=== PATIENT | female | born 1980 | race Caucasian/White ===

== ENCOUNTER 2017-01-17 01:49 | Inpatient (IN) ==
[2017-01-17 02:19] LABS: MANUAL DIFF NEEDED? NO
[2017-01-17 02:25] LABS: BASO% 0.2 % (0.0-0.8); EOS# 0.04 X1000 (0.0-0.7); EOS% 0.3 % (0.0-10.0); HEMATOCRIT 47.5 % (37.0-47.0); HEMOGLOBIN 16.5 g/dL (12.0-16.0); IMM GRAN# 0.02 X1000 (0.0-0.04); IMM GRAN% 0.2 % (0.0-0.5); LYMPH# 1.53 X1000 (1.2-3.4); LYMPH% 11.7 % (20.5-51.1); MCH 28.9 PG (27-31); MCHC 34.7 g/dL (33-37); MCV 83.2 FL (81-99); MONO# 0.47 X1000 (0.11-0.59); MONO% 3.6 % (1.7-9.3); MPV 11.1 FL (7.4-10.4); PLT 290 X1000 (130-400); RBC 5.71 XMIL (4.2-5.4)
[2017-01-17 02:46] LABS: AGAP 17; ALKALINE PHOSPHATASE 67 U/L (32-104); AMYLASE 64 U/L (20-200); BUN 11 mg/dL (8-22); CALCIUM 10.6 mg/dL (8.8-10.2); CHLORIDE 98 mmol/L (98-107); COSMO 274; GOT 20 U/L (10-30); GPT 20 U/L (10-36); LIPASE 52 U/L (13-60); POTASSIUM 4.6 mmol/L (3.5-5.1); SODIUM 135 mmol/L (136-145); TCO2 20 mmol/L (25-35); TOTAL BILIRUBIN 0.43 mg/dL (0.20-1.00); TOTAL PROTEIN 8.8 g/dL (6.3-8.3)
[2017-01-17] MEDS ORDERED: MORPHINE IV ONE ×2 (03:42→05:52)
[2017-01-17] MEDS ORDERED: NS 1,000 ML IV ONE ×2 (03:42→09:24)
[2017-01-17] MEDS ORDERED: ZOFRAN IV ONE (03:44)
--- NOTE | 2017-01-17 03:53 | PROVIDER DOCUMENTATION ---
HPI-Abdominal Pain/GI Problem - General Chief Complaint: N/V/D Stated Complaint: abd pain/vomiting Time Seen by Provider: 01/17/17 01:50 Source: patient Allergies/Adverse Reactions: Patient Allergies Allergy/AdvReac Type Severity Reaction Status Date / Time sulfamethoxazole Allergy HIVES Verified 01/17/17 02:16 [From Bactrim] trimethoprim [From Bactrim] Allergy HIVES Verified 01/17/17 02:16 Home Medications: Home Medication List Medication Instructions Recorded Confirmed Last Taken Type Hydrocodone/Acetaminophen [[place] 10 mg PO 4XDAY 09/20/14 01/17/17 01/16/17 History 10-325 Tablet] Metoprolol [Lopressor] 25 mg PO DAILY #30 tablet 05/21/15 01/17/17 01/08/17 Rx Buprenorphine HCl/Naloxone HCl 1 each SL BID 01/17/17 01/17/17 01/16/17 History [Suboxone 8 mg/2 mg Sl Film] - History of Present Illness-ABD Nature of Presenting Problems: 36 yo WF with 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 Tonight she took a suboxone strip which was purchased on the street, apparently precipitating severe withdrawal symptoms. Abdominal Pain Onset Location: reports: generalized abdomen Pain Radiation: reports: no radiation Quality of Pain: reports: cramping Severity in ED: reports: severe Onset/Duration: reports: 4-6 hours ago Activities at Onset: reports: none Exposure to sick contacts?: No Review of Systems - Adult - REVIEW OF SYSTEMS - ADULT Constitutional: reports: see HPI, chills Past History - Adult - PAST MEDICAL HISTORY-ADULT Review of Records: reports: Old Records Reviewed, Nursing Assessment Review, Medications Reviewed, Social history reviewed & non-contributory. Major Childhood Illnesses: reports: denies history Cardiovascular: reports: denies history Respiratory: reports: denies history Gastrointestinal: reports: denies history Obstetrical/Gynecological: reports: denies history Genitourinary: reports: denies history Musculoskeletal: reports: denies history Neurological: reports: denies history Endocrine/Immune: reports: denies history Other Conditions: reports: denies history - FAMILY HISTORY Family History: reviewed, not pertinent Physical Exam-General - PHYSICAL EXAM-ADULT Initial Vital Signs Reviewed: Yes - CONSTITUTIONAL General Appearance: severe distress, obese - EYES Eyes: PERRL/EOMI, pink conjunctivae - HEAD, EARS, NOSE, MOUTH & THROAT HENMT: normocephalic/atraumatic, moist mucous membranes - NECK Neck: non-tender, full range of motion - RESPIRATORY Respiratory: chest non-tender, lungs clear - CARDIOVASCULAR Cardiovascular: normal peripheral pulses, regular rate, rhythm, no edema, no gallop, no JVD, no murmur - GASTROINTESTINAL (ABDOMEN) Abdominal Exam: non tender, soft, no organomegaly - MUSCULOSKELETAL Back Exam: normal inspection Extremity: normal range of motion, non-tender - SKIN Integumentary: diaphoresis - NEUROLOGIC Neurologic: grossly normal - PSYCHIATRIC Psych/Mental Status: oriented x 3 Progress - PLAN OF CARE/RESULTS Progress/Plan/Lab Results: Vital Signs - 8 hr 01/17/17 02:03 Temperature 97.5 F L Pulse Rate 61 Respiratory Rate 16 Blood Pressure 157/100 O2 Sat by Pulse Oximetry 98 Laboratory Results - last 24 hr 01/17/17 01/17/17 02:00 02:00 WBC 13.07 H RBC 5.71 H Hgb 16.5 H Hct 47.5 H MCV 83.2 MCH 28.9 MCHC 34.7 RDW Std Deviation 13.4 Plt Count 290 MPV 11.1 H Immature Gran % (Auto) 0.2 Neut % (Auto) 84.0 H Lymph % (Auto) 11.[address] [place] % (Auto) 3.6 Eos % (Auto) 0.3 Baso % (Auto) 0.2 Immature Gran # (Auto) 0.02 Neut # (Auto) 10.99 H Lymph # (Auto) 1.53 [place] # (Auto) 0.47 Eos # (Auto) 0.04 Baso # (Auto) 0.02 Sodium 135 L Potassium 4.6 Chloride 98 Carbon Dioxide 20 L Anion Gap 17 BUN 11 Creatinine 1.0 H Estimated GFR/1.73 m2 > 60 BUN/Creatinine Ratio 11 Glucose 187 H Calculated Osmolality 274 Calcium 10.6 H Total Bilirubin 0.43 AST 20 ALT 20 Alkaline Phosphatase 67 Total Protein 8.8 H Albumin 5.0 Globulin 3.8 Albumin/Globulin Ratio 1.3 Amylase 64 Lipase 52 Orders Category Date Time Status Saline Loc DIRECTED Care 01/17/17 01:49 Active NPO Diet 01/17/17 01:49 Active AMYLASE [CHEM] Stat Lab 01/17/17 02:00 Completed CBC WITH ELECTRONIC DIFF [HEME] Stat Lab 01/17/17 02:00 Completed COMPREHENSIVE METABOLIC PANEL [CHEM] Stat Lab 01/17/17 02:00 Completed LIPASE [CHEM] Stat Lab 01/17/17 02:00 Completed URINALYSIS W/POSS RFLX CULT-1 [URINALYSIS] Stat Lab 01/17/17 01:49 Uncollected Morphine Med 01/17/17 03:42 Once 6 mg IV NOW ONE Ns 1000 ml IV Bolus X1 Med 01/17/17 03:42 Ordered 0.9% Sodium Chloride Inj [Ns] 1,000 ml IV 999 mls/hr Ondansetron [Zofran] Med 01/17/17 03:44 Once 8 mg IV NOW ONE She seems to be withdrawing from opiates, probably precipitated by suboxone Result Diagrams: 01/17/17 02:00 01/17/17 02:00 - REASSESSMENT Reassessment #1 Time Reassessed: 20:00 (still vomiting) Status: unchanged - CONSULTS/PCP/HOSPITALIST Notification #1 *Consult/PCP/Hospitalist*: takundwa Time Discussed: 09:38 Consult Disposition: Will see in ED, Admit Departure - Departure Date of Disposition Decision: 01/17/17 Time of Disposition Decision: 09:33 DIAGNOSIS: Acute narcotic withdrawal Disposition: ADMITTED INPATIENT 09 Certified Medical Emergency: Emergent Condition: Fair Referrals and Follow-Ups: None,PCP [Primary Care Provider] - - Critical Care Note This patient required my direct & personal management of CC.: No
[2017-01-17] MEDS ORDERED: PHENERGAN IV ONE (05:49)
[2017-01-17] MEDS ORDERED: SODIUM CHLORIDE 0.9% INJ ONE (05:49)
[2017-01-17] MEDS ORDERED: D5 1/2 NS + KCL 20 MEQ 1,000 ML IV ONE (05:53)
[2017-01-17] MEDS ORDERED: ATIVAN IV ONE (07:33)
[2017-01-17] MEDS ORDERED: REGLAN IV ONE (09:24)
--- NOTE | 2017-01-17 10:33 | Diag Imaging Result Doc PS360 ---
EXAM: FLAT/UPRIGHT ABD/1 VIEW CHEST HISTORY: intractable n/v TECHNIQUE: AP chest and flat and upright abdomen portable at 1017 COMMENT: There are distended gas-filled small bowel loops in the left upper quadrant. There is no evidence organomegaly or mass. The pelvis is not entirely included on the study. The stomach is not distended. The chest is not well expanded but is otherwise unremarkable in appearance. IMPRESSION: Focal ileus or partial small bowel obstruction. Electronically signed by Arpan Leon 01/17/2017 10:30 AM
[2017-01-17 11:18] LABS: URINE CULTURE NEEDED? NO; URINE MICRO REVIEW NEEDED? NO; URINE SOURCE CLEAN CATCH
[2017-01-17 11:21] LABS: BILIRUBIN URINE NEGATIVE (NEGATIVE); BLOOD URINE NEGATIVE (NEGATIVE); COLOR YELLOW; GLUCOSE URINE NEGATIVE (NEGATIVE); LEUKOCYTES URINE NEGATIVE (NEGATIVE); NITRITE URINE NEGATIVE (NEGATIVE); PH URINE 5.5; PROTEIN URINE 30 mg/dL (NEGATIVE); SP GRAVITY URINE 1.029; TURBIDITY URINE CLEAR (CLEAR); UR EPITHELIAL CELLS <10 /HPF (<10); URINE BACTERIA 1+ /HPF; URINE RBC <10 /HPF (<10); URINE WBC <10 /HPF (<10); UROBILINOGEN URINE NORMAL (NORMAL)
[2017-01-17 11:41] LABS: UR AMPHETAMINES QUAL NONE DETECTED (NONE DETECT); UR BARBITUATES QUAL NONE DETECTED (NONE DETECT); UR BENZODIAZEPIN QUAL NONE DETECTED (NONE DETECT); UR CANNABINOIDS QUAL NONE DETECTED (NONE DETECT); UR COCAINE QUAL NONE DETECTED (NONE DETECT); UR METHADONE QUAL NONE DETECTED (NONE DETECT); UR OPIATES QUAL PRESUMPTIVE POSITIVE (NONE DETECT); UR OXYCODONE QUAL NONE DETECTED (NONE DETECT); UR PCP QUAL NONE DETECTED (NONE DETECT)
[2017-01-17] MEDS ORDERED: NS 1,000 ML IV SCH (11:53)
--- NOTE | 2017-01-17 11:57 | Diag Imaging Result Doc PS360 ---
EXAM: CT ABD/PELVIS W/ IV CONT ONLY HISTORY: ?SBO TECHNIQUE: CT of the abdomen with intravenous contrast and dose reduction (clarity.) COMMENT: There is some mild dependent atelectasis in the lung bases. There are no previous studies. The liver, spleen, adrenal glands, and pancreas are within normal limits. The kidneys are without evidence of hydronephrosis or mass. The gallbladder is not distended and there are no apparent stones. There is some fluid present in the small bowel and colon particularly the ascending colon. There is considerable patient motion, impairing the study. CT of the pelvis with intravenous contrast: No significant free fluid is present. The urinary bladder is not distended. There are bilateral ovarian cysts the largest on the right measuring 2.4 cm in diameter. There has been apparent hysterectomy. IMPRESSION: Possibility of enterocolitis cannot be excluded. No evidence of bowel obstruction otherwise. Electronically signed by Arpan Leon 01/17/2017 11:55 AM
[2017-01-17] MEDS: LOVENOX SUBQ SCH (12:14)
[2017-01-17 12:20] LABS: HEMOGLOBIN A1C 5.5 % (4.8-6.0)
[2017-01-17] MEDS: LEVAQUIN 500 MG/D5W 500 MG/100 ML IVPB IV SCH (13:32)
[2017-01-17] MEDS: ZOFRAN IV PRN ×2 (13:32→17:44)
--- NOTE | 2017-01-17 14:29 | HISTORY AND PHYSICAL ---
CHIEF COMPLAINT: Nausea and vomiting. HISTORY OF PRESENT ILLNESS: Ms. Cavazos is a 36-year-old female with a history of hypertension and narcotic dependence who is currently on Suboxone therapy. History is very difficult to obtain at this time, as patient is sedated. She has had multiple narcotics in the ER. She states that she came into the hospital today because she has been throwing up and having abdominal pain, but the exact timeframe is difficult to pin down. Apparently, she ran out of her Suboxone a few weeks back and also has recently had a tooth extraction. After her tooth extraction, she took [place] for pain relief and then, either today or yesterday, she took a Suboxone and a [place], which caused her to go into withdrawal and have continued abdominal pain, nausea, and vomiting. Again, the specifics are very difficult to obtain as the patient is sedated and confused. At any rate, she came to the ER for evaluation. In the ER, labs showed mild leukocytosis and hemoconcentration, but nothing really acute. She was given multiple rounds of morphine, Phenergan, and a 1-time dose of Ativan for symptom relief. When we saw her, she reported that she was having lower quadrant abdominal pain, so we checked an abdomen x-ray and it showed left upper quadrant ileus versus partial small-bowel obstruction. We have ordered a CT of the abdomen and pelvis with IV contrast and we are now going to admit her for further treatment and evaluation. PAST MEDICAL HISTORY: 1. Narcotic dependence. 2. Hypertension. SURGICAL HISTORY: Hysterectomy, carpal tunnel release, section, and ACDF. SOCIAL HISTORY: Patient denies tobacco, alcohol, or illicit drug use. FAMILY HISTORY: Noncontributory. REVIEW OF SYSTEMS: Unable to obtain. ALLERGIES: Bactrim. HOME MEDICATIONS: Lopressor 25 mg daily. [place] 10 mg 4 times a day. Suboxone 8 mg b.i.d. PHYSICAL EXAMINATION: VITAL SIGNS: Blood pressure is 147/108, heart rate 78, respiratory rate 18, O2 saturation 100% on room air, and temperature is 98.2 degrees. GENERAL: This is a disheveled-appearing 36-year-old female, lying in the hospital bed in no acute distress. NEUROLOGIC: The patient is sedated and confused, but she follows commands without focal deficits. HEENT: Head is atraumatic and normocephalic. Her pupils are equal, round, and reactive to light. Her oral mucosa is dry. Trachea is midline. CHEST: Clear to auscultation bilaterally. CARDIOVASCULAR: Regular rate and rhythm. S1 and S2 noted. No murmurs. GASTROINTESTINAL: Soft. Left lower and left upper quadrant tenderness to palpation. Bowel sounds are hypoactive. EXTREMITIES: Without edema, clubbing, or cyanosis. Pulses are palpable bilaterally. DIAGNOSTIC DATA: WBC 13, hemoglobin 16.5, hematocrit 47.5, platelet count 290, 000. Sodium 135, potassium 4.6, chloride 98, CO2 of 20, anion gap 17, BUN 11, creatinine 1, glucose 187, calcium 10.6, AST 20, ALT 20, alkaline phosphatase 67, protein 8.8, lipase 52. UA is pending. ASSESSMENT AND PLAN: 1. Abdominal pain: There is a question of ileus versus small-bowel obstruction. We are going to check a CT of the abdomen and pelvis with IV contrast and, if needed, consult Surgery. We will keep her n.p.o., add IV fluids and antiemetics. 2. Narcotic withdrawal: Patient is currently sedated and confused. She has had multiple doses of IV morphine, Ativan, and Phenergan. We will hold off on all of these and monitor her response. 3. Leukocytosis: Likely reactive, if CT shows any signs of infection, we will add abx. 4. Hemoconcentration: We will continue with IV fluid resuscitation. 5. Hyperglycemia: Will check hemoglobin A1c, but this is likely reactive. 6. Deep vein thrombosis prophylaxis with Lovenox. Further recommendations to follow. Dictated by ERVIN Leon for Daly Forte MD cc: ERVIN Leon MD [facility]
[2017-01-17] MEDS: NS 1,000 ML IV SCH ×2 (16:56→16:59)
[2017-01-17] MEDS: FLAGYL 500 MG/NS 500 MG/100 ML IVPB IV SCH (16:56)
[2017-01-17] MEDS: ULTRAM PO PRN (19:02)
[2017-01-17] MEDS ORDERED: IMODIUM PO ONE (19:56)
[2017-01-17] MEDS ORDERED: TYLENOL PO ONE (19:56)
[2017-01-18] MEDS: ULTRAM PO PRN ×3 (00:34→17:49)
[2017-01-18] MEDS: ZOFRAN IV PRN ×4 (00:35→13:36)
[2017-01-18] MEDS: FLAGYL 500 MG/NS 500 MG/100 ML IVPB IV SCH ×3 (00:42→13:45)
[2017-01-18] MEDS: NS 1,000 ML IV SCH ×2 (05:24→20:23)
[2017-01-18] MEDS ORDERED: PHENERGAN PR PRN (06:30)
[2017-01-18] MEDS ORDERED: IMODIUM PO PRN (06:31)
[2017-01-18] MEDS: IMODIUM PO PRN (06:40)
[2017-01-18] MEDS ORDERED: PRILOSEC PO ONE (10:53)
[2017-01-18] MEDS: LEVAQUIN 500 MG/D5W 500 MG/100 ML IVPB IV SCH (11:55)
[2017-01-18] MEDS: LOVENOX SUBQ SCH (11:55)
[2017-01-18] MEDS: SODIUM CHLORIDE 0.9% INJ PRN ×2 (13:42→20:23)
[2017-01-18] MEDS: PHENERGAN IV PRN ×2 (13:42→20:23)
[2017-01-18 14:03] LABS: MANUAL DIFF NEEDED? NO
[2017-01-18 14:40] LABS: BASO% 0.2 % (0.0-0.8); HEMATOCRIT 40.4 % (37.0-47.0); HEMOGLOBIN 13.9 g/dL (12.0-16.0); IMM GRAN# 0.02 X1000 (0.0-0.04); IMM GRAN% 0.2 % (0.0-0.5); LYMPH# 0.89 X1000 (1.2-3.4); LYMPH% 9.7 % (20.5-51.1); MCH 29.3 PG (27-31); MCHC 34.4 g/dL (33-37); MCV 85.1 FL (81-99); MONO# 0.55 X1000 (0.11-0.59); MPV 11.1 FL (7.4-10.4); NEUT% 83.9 % (42.2-75.2); PLT 227 X1000 (130-400); RBC 4.75 XMIL (4.2-5.4)
[2017-01-18 14:53] LABS: AGAP 16; BUN 12 mg/dL (8-22); CHLORIDE 98 mmol/L (98-107); COSMO 274; POTASSIUM 3.3 mmol/L (3.5-5.1); SODIUM 137 mmol/L (136-145); TCO2 23 mmol/L (25-35)
--- NOTE | 2017-01-18 15:58 | CONSULTATION ---
DATE OF CONSULTATION: 01/18/2017 REASON FOR REFERRAL: Nausea and vomiting, possible enterocolitis. HISTORY OF PRESENT ILLNESS: This is a 36-year-old, white female with a history of hypertension and narcotic dependency on Suboxone therapy. She states she started with onset of symptoms on Monday with abdominal pain, nausea vomiting and some diarrhea. She states that she is on Suboxone for chronic pain. She had recently run out of her medication. She reports having a recent tooth extraction and took [place] for pain at that time. She had also taken her Suboxone. She has been seen in the ER and a CT scan showed. Possible inner colitis that could not be excluded. No evidence of bowel obstruction. She has currently received pain medication and nausea medication. She still reports having episodes of vomiting. PAST MEDICAL HISTORY: Narcotic dependence, hypertension. PAST SURGICAL HISTORY: Hysterectomy, section, partial hysterectomy, carpal tunnel surgery. ALLERGIES: Bactrim, causing hives. HOME MEDICATIONS: Suboxone twice daily, Lopressor 25 mg daily, [place] 10/325. SOCIAL HISTORY: She is . She has 4 children. She does not work. She denies tobacco, alcohol or illicit drug use. REVIEW OF SYSTEMS: Per HPI. PHYSICAL EXAMINATION: Vital Signs: Temperature 97.6 degrees, pulse 71, respirations 20, blood pressure 156/96. Generally, patient is awake, alert, in no acute distress. HEENT: Normocephalic, atraumatic. Pupils equal, round, reactive to light. Sclerae are nonicteric. Respiratory: Lung sounds clear bilaterally. Cardiovascular: Regular rate and rhythm. Abdomen: Soft, with some diffuse tenderness with palpation, otherwise positive bowel sounds. Extremities: No lower extremity edema noted. DIAGNOSTIC RESULTS/LABORATORY: Hematology: White count 9.22, hemoglobin 13.9, hematocrit 40.4, MCV 85.1, platelets 227,000. Chemistry: Sodium 137, potassium 3.3, chloride 98, CO2 23, BUN 12, creatinine 1.0, glucose 102, total bilirubin 0.43, AST 20, ALT 20, alkaline phosphatase 67, amylase 64, lipase 52. Toxicology positive for opioids, otherwise none detected. Abdominal pelvis CT scan showed some mild dependent atelectasis in the lung bases. The gallbladder was not distended. No stones noted. There was some fluid present in the small bowel and colon, particularly the ascending colon. The possibility of enterocolitis could not be excluded. There was no evidence of bowel obstruction. ASSESSMENT AND PLAN: 1. Nausea and vomiting. 2. Abdominal pain. 3. Narcotic withdrawal. 4. Leukocytosis has improved. PLAN: Continue supportive care and symptomatic treatment. Continue antibiotics. Continue ice chips and sips of liquids only for now. We will continue to follow. Further plans will be made as needed. I have discussed this case with Dr. Low. I have also discussed the case with Dr. Forte. Thank you for this consultation. Dictated by ERVIN Arguello for Abdullahi Low MD cc: ERVIN Grady MD
--- NOTE | 2017-01-18 16:48 | PROGRESS NOTE ---
DATE: 01/18/2017 SUBJECTIVE: The patient is complaining of back pain as well as lower abdominal pain. The patient had several episodes of nausea with emesis this afternoon. She has been drinking ice water, however. OBJECTIVE: Vital Signs: Temperature 97.6, blood pressure 156/96, heart rate 71 , respirations 20, O2 saturations 100% on room air. General: This is a young female, lying in bed , in no acute distress. Head: Normocephalic, atraumatic. Heart: S1, S2 normal. Regular rate and rhythm. Lungs: Clear to auscultation bilaterally. No crackles. No rales. Abdomen: Positive bowel sounds. Soft, nontender, nondistended. Extremities: No edema. No cyanosis. No calf tenderness. Neuro: The patient is alert and oriented x3. LABS: White blood cell count 9.2, hemoglobin 13, hematocrit 40, platelets 227. Sodium 137, potassium 3.3. ASSESSMENT AND PLAN 1. Enterocolitis. Continue IV flagyl and levaquin. Will keep NPO for now. GI is following. 2. Narcotic dependence. Continue on tramadol for pain control. 3. Hypokalemia. Replace potassium 4. DVT prophylaxis. Continue on SCDs. cc: Daly Forte MD MTDD
[2017-01-18] MEDS: POTASSIUM CHLORIDE 20 MEQ/SWI 20 MEQ/100 ML IVPB IV SCH ×2 (17:46→20:23)
[2017-01-19] MEDS: FLAGYL 500 MG/NS 500 MG/100 ML IVPB IV SCH ×5 (03:42→19:59)
[2017-01-19] MEDS: PHENERGAN IV PRN ×4 (03:43→22:41)
[2017-01-19] MEDS: ULTRAM PO PRN (03:47)
[2017-01-19] MEDS: NS 1,000 ML IV SCH ×2 (03:49→16:38)
[2017-01-19 06:59] LABS: MANUAL DIFF NEEDED? NO
[2017-01-19 07:03] LABS: BASO% 0.1 % (0.0-0.8); HEMATOCRIT 40.6 % (37.0-47.0); LYMPH# 1.17 X1000 (1.2-3.4); LYMPH% 15.3 % (20.5-51.1); MCH 29.4 PG (27-31); MCHC 34.5 g/dL (33-37); MCV 85.1 FL (81-99); MONO# 0.45 X1000 (0.11-0.59); MONO% 5.9 % (1.7-9.3); MPV 10.7 FL (7.4-10.4); NEUT% 78.7 % (42.2-75.2); PLT 202 X1000 (130-400); RBC 4.77 XMIL (4.2-5.4)
[2017-01-19 07:29] LABS: AGAP 14; BUN 13 mg/dL (8-22); CALCIUM 8.9 mg/dL (8.8-10.2); CHLORIDE 102 mmol/L (98-107); COSMO 274; POTASSIUM 3.8 mmol/L (3.5-5.1); SODIUM 137 mmol/L (136-145); TCO2 21 mmol/L (25-35)
[2017-01-19] MEDS: IMODIUM PO PRN (07:46)
[2017-01-19] MEDS: SODIUM CHLORIDE 0.9% INJ PRN ×2 (10:29→17:22)
[2017-01-19] MEDS: SUBOXONE 8 MG/2 MG SL SCH ×2 (10:37→19:59)
[2017-01-19] MEDS: LOPRESSOR PO SCH (12:17)
[2017-01-19] MEDS: LEVAQUIN 500 MG/D5W 500 MG/100 ML IVPB IV SCH (12:17)
[2017-01-19] MEDS: LOVENOX SUBQ SCH (12:17)
--- NOTE | 2017-01-19 12:47 | PROGRESS NOTE ---
DATE: 01/19/2017 SUBJECTIVE: Patient states she is feeling better. She denies episodes of vomiting today. She does report 3-4 episodes of loose stools today. She is tolerating her liquids better. OBJECTIVE: Vital Signs: Temperature 98.6 degrees, pulse 55, respirations 18, blood pressure 177/104. General: Patient is awake, alert, no acute distress. HEENT: Normocephalic, atraumatic. Pupils equal, round, reactive to light. Sclerae nonicteric. Cardiovascular: Regular rate and rhythm. Respiratory: Lung sounds essentially clear bilaterally. Abdomen: Soft. Positive bowel sounds. She does have tenderness with palpation. DIAGNOSTIC RESULTS/LABORATORY: Hematology: White count 7.65, hemoglobin 14.0, hematocrit 40.6, MCV 85.1, platelet 202,000. Chemistry: Sodium 137, potassium 3.8, chloride 102, CO2 21, BUN 13, creatinine 0.8, glucose 95. ASSESSMENT: 1. Nausea and vomiting, improved. 2. Diarrhea. 3. Possible enterocolitis. 4. Narcotic dependency. 5. Hypertension. PLAN: Continue antibiotics. Continue symptomatic treatment and supportive care. Will order stool studies if they have not been ordered. Continue clear liquid diet for now. Patient has a history of hypertension and takes metoprolol 25 mg daily at home. This has not been started in the hospital. Her blood pressures are elevated. I have contacted the nurse to notify Dr. Forte about restarting her blood pressure medicine if appropriate. GI will continue to follow and be available as needed. Dr. Low is off the next week. Dr. Mccord will be following. Please contact her if needed. Dictated by ERVIN Arguello for Abdullahi Low MD cc: ERVIN Grady MD
--- NOTE | 2017-01-19 14:08 | PROGRESS NOTE ---
DATE: 01/19/2017 SUBJECTIVE: The patient is resting comfortably in bed. She states that she has not had any episodes of nausea today. OBJECTIVE: Vital Signs: Temperature 98.6 degrees, blood pressure 177/104, heart rate 55, respirations 18, O2 sats 100% on room air. General: This is an young female, lying in bed, in no acute distress. Head: Normocephalic, atraumatic. Heart: S1, S2. Normal. Regular rate and rhythm. Lungs: Clear to auscultation bilaterally. No wheezing. No rales. No rhonchi. Abdomen: Positive bowel sounds. Soft, nontender, nondistended. Extremities: No edema. No cyanosis. No calf tenderness. Neurologic: The patient is alert and oriented x3. LABS: White blood cell count 7.6, hemoglobin 13, hematocrit 40, platelets 202,000. Sodium 137, potassium 3.8, chloride 102, CO2 21, BUN 13, creatinine 0.8. ASSESSMENT AND PLAN: 1. Enterocolitis. Improved. The patient's white blood cell count is normal. Will continue on the current antibiotic regimen. Will advance the patient to a clear liquid diet today. 2. Nausea with vomiting. Improved. 3. Uncontrolled hypertension. We will restart the patient's metoprolol. 4. Narcotic dependent. Will restart the patient's Suboxone. 5. Deep vein thrombosis prophylaxis. Continue on Lovenox. cc: Daly Forte MD
[2017-01-19] MEDS: NORVASC PO SCH (19:59)
[2017-01-19] MEDS: ZOFRAN IV PRN (20:34)
[2017-01-20] MEDS: PHENERGAN IV PRN ×2 (03:04→13:16)
[2017-01-20] MEDS: FLAGYL 500 MG/NS 500 MG/100 ML IVPB IV SCH ×4 (03:04→20:13)
[2017-01-20] MEDS: NS 1,000 ML IV SCH (03:05)
[2017-01-20] MEDS: ZOFRAN IV PRN (05:14)
[2017-01-20 07:11] LABS: MANUAL DIFF NEEDED? NO
[2017-01-20 07:20] LABS: BASO% 0.3 % (0.0-0.8); EOS# 0.06 X1000 (0.0-0.7); EOS% 0.9 % (0.0-10.0); HEMATOCRIT 41.6 % (37.0-47.0); HEMOGLOBIN 14.3 g/dL (12.0-16.0); LYMPH# 1.33 X1000 (1.2-3.4); LYMPH% 20.2 % (20.5-51.1); MCH 29.4 PG (27-31); MCHC 34.4 g/dL (33-37); MCV 85.4 FL (81-99); MONO# 0.57 X1000 (0.11-0.59); MONO% 8.7 % (1.7-9.3); MPV 10.8 FL (7.4-10.4); NEUT% 69.9 % (42.2-75.2); PLT 171 X1000 (130-400); RBC 4.87 XMIL (4.2-5.4)
[2017-01-20 07:40] LABS: AGAP 11; BUN 10 mg/dL (8-22); CALCIUM 8.4 mg/dL (8.8-10.2); CHLORIDE 100 mmol/L (98-107); COSMO 269; POTASSIUM 3.7 mmol/L (3.5-5.1); SODIUM 135 mmol/L (136-145); TCO2 24 mmol/L (25-35)
[2017-01-20] MEDS: NORVASC PO SCH ×2 (08:02→20:12)
[2017-01-20] MEDS: LOPRESSOR PO SCH (08:02)
[2017-01-20] MEDS: SUBOXONE 8 MG/2 MG SL SCH (08:07)
--- NOTE | 2017-01-20 12:07 | Diag Imaging Result Doc PS360 ---
EXAM: US ABDOMEN-COMPLETE INDICATION: nausea/vomiting/abdominal pain COMPARISON: None. FINDINGS: The gallbladder appears normal with no stones, wall thickening, or pericholecystic fluid. The common bile duct is normal in diameter. Sonographic Delacruz's sign was reported to be negative. The liver is grossly unremarkable. Portal venous flow is hepatopedal. The visualized pancreas is unremarkable. The aorta and IVC are grossly unremarkable. The spleen is unremarkable. The kidneys are grossly unremarkable. IMPRESSION: Essentially unremarkable abdominal ultrasound. Electronically signed by Vazquez Faith 01/20/2017 12:05 PM
[2017-01-20] MEDS: LEVAQUIN 500 MG/D5W 500 MG/100 ML IVPB IV SCH (12:30)
[2017-01-20] MEDS: SODIUM CHLORIDE 0.9% INJ PRN (13:16)
[2017-01-20] MEDS: IMODIUM PO PRN ×2 (13:31→22:22)
--- NOTE | 2017-01-20 14:27 | PROGRESS NOTE ---
DATE: 01/20/2017 SUBJECTIVE: Patient states she feels a little better. She does report having an episode of vomiting this morning. She did collect a stool study. Results are pending. OBJECTIVE: Vital Signs: Temperature 98.8 degrees, pulse 69, respirations 21, blood pressure 159/101. Laboratory: Hematology: White count 6.57, hemoglobin 14.3, hematocrit 41.6, MCV 85.4, platelets 171,000. Chemistry: Sodium 135, potassium 3.7, chloride 100, CO2 24, BUN 10, creatinine 1.0, glucose 96. Stool studies are pending. ASSESSMENT AND PLAN: 1. Enterocolitis, improving. Her white blood cell count is normal. 2. Nausea and vomiting. Continue symptomatic treatment. 3. Hypertension. Her metoprolol was restarted yesterday. PLAN: Continue supportive care and symptomatic treatment. Continue antibiotics. We will follow stool results. Further plans will be made as needed. Dr. Mccord will be available in Dr. Low's absence. Dictated by ERVIN Arguello for Abdullahi Low MD cc: ERVIN Grady MD
[2017-01-20] MEDS: LOVENOX SUBQ SCH (15:31)
--- NOTE | 2017-01-20 17:02 | PROGRESS NOTE ---
DATE: 01/20/2017 SUBJECTIVE: The patient states that she had breakfast this morning and then ended up having an episode of emesis after eating. OBJECTIVE: Vital Signs: Temperature 98 degrees, blood pressure 159/101, heart rate 69, respirations 21. O2 saturations 99% on room air. General: This is a young female, lying in bed, in no acute distress. Head: Normocephalic, atraumatic. Heart: S1, S2. Normal. Regular rate and rhythm. Lungs: Clear to auscultation bilaterally. No wheezes, no rales. No rhonchi. Abdomen: Positive bowel sounds. Soft, nontender, nondistended. Extremities: No edema. No cyanosis. No calf tenderness. Neurologic: The patient is alert and oriented x3. LABS: Reviewed. ASSESSMENT AND PLAN: 1. Enterocolitis. Continue on Flagyl and Levaquin. 2. Nausea with vomiting. The patient had an episode this morning after eating breakfast. An abdominal ultrasound was done which is unremarkable. Continue with antiemetics therapy. 3. Uncontrolled hypertension. We will add hydralazine to the patient's antihypertensive regimen. 4. Narcotic dependence. Continue on Suboxone. 5. Deep vein thrombosis prophylaxis. Continue on Lovenox. cc: Daly Forte MD
[2017-01-20] MEDS: APRESOLINE PO SCH (20:12)
[2017-01-20] MEDS ORDERED: SUBOXONE 8 MG/2 MG SL SCH (21:00)
[2017-01-21] MEDS: PHENERGAN IV PRN ×2 (00:25→08:35)
[2017-01-21] MEDS: SODIUM CHLORIDE 0.9% INJ PRN (00:25)
[2017-01-21] MEDS: NS 1,000 ML IV SCH (00:35)
[2017-01-21] MEDS: FLAGYL 500 MG/NS 500 MG/100 ML IVPB IV SCH ×2 (01:28→08:32)
[2017-01-21] MEDS: APRESOLINE PO SCH ×3 (04:43→20:27)
[2017-01-21 06:30] LABS: HEMATOCRIT 39.9 % (37.0-47.0); HEMOGLOBIN 13.5 g/dL (12.0-16.0); MCH 29.9 PG (27-31); MCHC 33.8 g/dL (33-37); MCV 88.3 FL (81-99); MPV 10.5 FL (7.4-10.4); RBC 4.52 XMIL (4.2-5.4)
[2017-01-21 06:52] LABS: AGAP 12; ALBUMIN 3.5 g/dL (3.5-5.0); ALKALINE PHOSPHATASE 42 U/L (32-104); BUN 10 mg/dL (8-22); CALCIUM 8.3 mg/dL (8.8-10.2); CHLORIDE 102 mmol/L (98-107); COSMO 277; DIRECT BILIRUBIN < 0.20 mg/dL (0.00-0.20); GOT 16 U/L (10-30); GPT 23 U/L (10-36); POTASSIUM 3.6 mmol/L (3.5-5.1); SODIUM 139 mmol/L (136-145); TCO2 25 mmol/L (25-35); TOTAL BILIRUBIN 0.29 mg/dL (0.20-1.00); TOTAL PROTEIN 5.9 g/dL (6.3-8.3)
[2017-01-21] MEDS: NORVASC PO SCH (08:27)
[2017-01-21] MEDS: LOPRESSOR PO SCH (08:27)
[2017-01-21] MEDS ORDERED: SUBOXONE 8 MG/2 MG SL SCH (09:00)
[2017-01-21] MEDS ORDERED: SODIUM CHLORIDE 0.9% INJ SCH (11:45)
[2017-01-21] MEDS ORDERED: NEXIUM IV SCH (11:45)
[2017-01-21] MEDS ORDERED: 1/2 NS 1,000 ML IV SCH (11:47)
[2017-01-21] MEDS ORDERED: BENTYL PO PRN (11:49)
[2017-01-21] MEDS: LOVENOX SUBQ SCH (13:47)
[2017-01-21 15:32] LABS: HEMATOCRIT 39.7 % (37.0-47.0); HEMOGLOBIN 13.4 g/dL (12.0-16.0); MCH 29.4 PG (27-31); MCHC 33.8 g/dL (33-37); MCV 87.1 FL (81-99); MPV 10.6 FL (7.4-10.4); RBC 4.56 XMIL (4.2-5.4)
--- NOTE | 2017-01-21 15:37 | PROGRESS NOTE ---
DATE: 01/21/2017 SUBJECTIVE: The patient complains of nausea. However, she is able to keep her food down. OBJECTIVE: Vital Signs: Temperature 98 degrees, blood pressure 121/78, heart rate 73, respirations 18, O2 saturation is 100% on room air. General: This is a young female, lying in bed, in no acute distress. Head: Normocephalic, atraumatic. Heart: S1, S2. Normal. Regular rate and rhythm. Lungs: Clear to auscultation bilaterally. No wheezes. No rales. No rhonchi. Abdomen: Positive bowel sounds. Soft, nontender, nondistended. Extremities: No edema. No cyanosis. Neurologic: The patient is alert and oriented x3. LABS: Sodium 139. White blood cell count 6.8. BUN 10, creatinine 1.1. Glucose 100. ASSESSMENT AND PLAN: 1. Enterocolitis. This appears to be improving. This is day 4 of antibiotic therapy. 2. Nausea. The patient states that she feels nauseous after eating. She has not vomited today. We will continue on antiemetic therapy. May need to consider a gastric emptying study or EGD at some point. 3. Hypertension. Stable. Continue on metoprolol and Norvasc. 4. Narcotic dependence. Continue on Suboxone. cc: Daly Forte MD MTDD
[2017-01-21] MEDS ORDERED: PHENERGAN PO PRN (16:17)
[2017-01-21] MEDS ORDERED: PRILOSEC PO ONE (16:18)
--- NOTE | 2017-01-21 17:37 | PROGRESS NOTE ---
DATE: 01/21/2017 SUBJECTIVE: The patient states that she is having severe abdominal pain. She reports the passage of black stools. She also reports nausea. However, she was able to tolerate 100% of her diet on her tray. On exam, her blood pressure is 121/78, pulse 73, respiration 18, temperature of 98.1 degrees.Pulmonary Examination: Lungs are clear to auscultation with normal expiratory effort. Cardiovascular Examination: Reveals regular rate and rhythm with no murmurs, gallops, or rubs. Abdomen: Reveals normoactive bowel sounds. The abdomen is soft, nontender, with no rebound or guarding. Rectal exam: There was qureshi brown stool with no evidence of melena or hematochezia. Neurologic: She appears to be alert and oriented x3. OBJECTIVE DATA: Remarkable for hemoglobin of 13.5 with hematocrit of 39.9, and a white count of 6.85. She has 162,000 platelets. Sodium is 139, potassium 3.6, chloride 102, CO2 of 25, BUN 10, creatinine 1.1 with a glucose of 100. Calcium is 8.3, total bilirubin 0.29, direct bilirubin less than 0.20, AST 16, ALT 23, alkaline phosphatase 42, total protein 5.9, albumin 3.5. Her stool studies are positive for fecal white blood cells which are consistent with the diagnosis of enterocolitis. IMPRESSION: 1. Enterocolitis. 2. Nausea. 3. The patient reports melenic stools. RECOMMENDATION: 1. Continue antibiotics for treatment of the documented enterocolitis. 2. The patient reports nausea and states that she passed 2 black stools. However, on digital exam, she has qureshi brown stool in the rectal vault. I recommend adding Carafate suspension 1 g p.o. q.6 hours while she is an inpatient. This can be transitioned to tablets as an outpatient for a 12 week course if it improves her symptoms. 3. From a hemodynamic standpoint, she has been clinically stable. It is reasonable to consider oral antibiotics followed by outpatient care as long as she continues to tolerate her diet. 4. Upon discharge, I would have her follow up with Dr. Abdullahi Low who is her primary restaurant kitchen and service manager. cc: MD Daly Dunn MD Khurshid Yousuf, MD
[2017-01-21] MEDS: CARAFATE LIQUID PO SCH ×2 (17:48→20:26)
[2017-01-21] MEDS: FLAGYL PO SCH ×2 (17:48→20:27)
[2017-01-21] MEDS: LEVAQUIN PO SCH (17:48)
[2017-01-21] MEDS: SUBOXONE 8 MG/2 MG SL SCH (17:49)
[2017-01-22] MEDS: FLAGYL PO SCH ×4 (04:42→19:58)
[2017-01-22] MEDS: APRESOLINE PO SCH ×3 (04:42→20:00)
[2017-01-22] MEDS: CARAFATE LIQUID PO SCH ×4 (04:42→19:56)
[2017-01-22] MEDS: SUBOXONE 8 MG/2 MG SL SCH ×2 (05:04→17:36)
[2017-01-22] MEDS: PRILOSEC PO SCH (06:39)
[2017-01-22 07:12] LABS: HEMATOCRIT 38.5 % (37.0-47.0); HEMOGLOBIN 12.9 g/dL (12.0-16.0); MCH 29.6 PG (27-31); MCHC 33.5 g/dL (33-37); MCV 88.3 FL (81-99); MPV 10.5 FL (7.4-10.4); RBC 4.36 XMIL (4.2-5.4)
[2017-01-22 07:28] LABS: AGAP 12; BUN 10 mg/dL (8-22); CALCIUM 8.4 mg/dL (8.8-10.2); CHLORIDE 102 mmol/L (98-107); COSMO 275; POTASSIUM 3.9 mmol/L (3.5-5.1); SODIUM 138 mmol/L (136-145); TCO2 24 mmol/L (25-35)
[2017-01-22] MEDS: LEVAQUIN PO SCH (08:22)
[2017-01-22] MEDS: LOPRESSOR PO SCH (08:22)
[2017-01-22] MEDS: LOVENOX SUBQ SCH (12:10)
--- NOTE | 2017-01-22 17:14 | PROGRESS NOTE ---
DATE: 01/22/2017 SUBJECTIVE: The patient is tolerating her meals. She complains of mild nausea but feels better. OBJECTIVE: Vital Signs: Temperature 96 degrees, blood pressure 117/80, heart rate 77, respirations 20, O2 saturations 100% on room air. General: This is a young female lying in bed. Head: Normocephalic, atraumatic. Heart: S1, S2. Normal. Regular rate and rhythm. Lungs: Clear to auscultation bilaterally. No wheezing, no rales, no rhonchi. Abdomen: Positive bowel sounds. Soft, nontender, nondistended. Extremities: No edema, no cyanosis. Neurologic: The patient is alert oriented x3. LABS: Reviewed. ASSESSMENT AND PLAN: 1. Enterocolitis. Continue on Flagyl and Levaquin. Today is day 5 of therapy. 2. Nausea. Improved. 3. Hypertension. Stable. Continue on metoprolol and hydralazine. 4. Narcotic dependence. Continue on Suboxone. 5. Disposition. Hopefully the patient will be able to be discharged home either today or tomorrow. cc: Daly Forte MD
[2017-01-23] MEDS: FLAGYL PO SCH ×2 (05:06→08:54)
[2017-01-23] MEDS: APRESOLINE PO SCH (05:06)
[2017-01-23] MEDS: CARAFATE LIQUID PO SCH ×2 (05:06→08:54)
[2017-01-23] MEDS: SUBOXONE 8 MG/2 MG SL SCH (05:06)
[2017-01-23] MEDS: PRILOSEC PO SCH (06:23)
[2017-01-23 08:25] VITALS: BP 119/84
[2017-01-23] MEDS: LOPRESSOR PO SCH (08:54)
[2017-01-23] MEDS: LEVAQUIN PO SCH (08:54)
--- NOTE | 2017-01-26 09:46 | DISCHARGE SUMMARY ---
ADMISSION DATE: 01/17/2017 DISCHARGE DATE: 01/23/2017 PRIMARY CARE PHYSICIAN: Dr. Lawrence. FINAL DISCHARGE DIAGNOSES: 1. Enterocolitis. 2. Hypertension. 3. Nausea with vomiting. 4. Narcotic dependence. CONSULTATIONS REQUESTED DURING THIS HOSPITAL STAY: Gastroenterology consultation with Dr. Low. IMAGING PERFORMED DURING THIS HOSPITAL STAY: CT of the abdomen and pelvis performed on 01/17/2017 that revealed enterocolitis. HOSPITAL COURSE: Ms. Cavazos is a 36-year-old female with a history of hypertension and narcotic dependence, on Suboxone, who presented to the ER with persistent nausea, vomiting, and diarrhea. In the ER, the patient had a CT of the abdomen and pelvis done that revealed enterocolitis. As a result, the patient was admitted for further management. Cultures were obtained and the patient was started on IV Levaquin and IV Flagyl. Gastroenterology was also consulted for further recommendations. Slowly over the course of the hospitalization, the patient started to respond to the antibiotic therapy, and her nausea and vomiting improved and her diarrhea stopped. The patient also had an abdominal ultrasound that was noted to be normal. The patient was eventually transitioned to oral antibiotic therapy, which she tolerated without any difficulty. The patient continued to improve clinically and was cleared for discharge home on 01/23/2017. DISCHARGE MEDICATIONS: 1. Hydralazine 25 mg p.o. every 8 hours. 2. Flagyl 500 mg p.o. every 6 hours for 7 more days. 3. Carafate 1 g p.o. 4 times a day. 4. Levaquin 500 mg p.o. daily for 7 days. 5. Lopressor 25 mg p.o. daily. 6. Suboxone 2 mg sublingual twice a day. DISCHARGE DIET: Low-sodium, low-cholesterol diet. ACTIVITY: As tolerated. FOLLOWUP INSTRUCTIONS: The patient will need to follow up with Dr. Low in 2 weeks. The patient will also need to follow up with Dr. Lawrence this week. cc: MD Suman Houser
== END 2017-01-23 09:57 | disposition home or self-care (01) ==
LOC: ED 01:49 → 3N 11:14 → UNDODISIN 17:56
PROVIDERS: ATTEND Internal Medicine